=== PATIENT | male | born 1955 | race Caucasian/White ===

== ENCOUNTER 2018-03-29 16:05 | Emergency (ER) | payer OTHER ==
[~2018-03-29] VITALS: Ht 182.8 cm; Wt 97.5 kg
[2018-03-29] MEDS ORDERED: GABAPENTIN400 MG PO (16:11)
[2018-03-29] MEDS ORDERED: METOPROLOL SUCC25 M2 PO (16:12)
[2018-03-29] MEDS ORDERED: CEPHALEXIN500 M1 PO (17:42)
== END 2018-03-29 19:44 | disposition home or self-care (01) ==
LOC: ED 16:05
DX: S61.412A Laceration without foreign body of left hand, initial encounter (principal); Z79.899 Other long term (current) drug therapy; W31.89XA Contact with other specified machinery, initial encounter; Y93.89 Activity, other specified; Y92.89 Other specified places as the place of occurrence of the external cause; Y99.8 Other external cause status

== ENCOUNTER → 2020-02-01 | Outpatient (CLI) | payer OTHER ==
[~2020-02-01] MED LIST: CEPHALEXIN500 M1 PO; GABAPENTIN400 MG PO; METOPROLOL SUCC25 M2 PO
[2020-02-01 16:12] LABS: BASO % 0.4 % (0.0-1.0); EOS # 0.1 10*3/uL (0.0-0.4); EOS % 1.7 % (1.0-4.0); HEMATOCRIT 41.8 % (42.0-52.0); LYMPH % 14.3 % (27.0-41.0); MEAN CELL VOLUME 93.9 fl (80.0-94.0); MEAN CORPUSCULAR HGB 31.5 pg (27.0-31.0); MEAN CORPUSCULAR HGB CONC 33.5 g/dl (33.0-37.0); MEAN PLATELET VOLUME 11.2 fl (9.6-12.3); MONO # 0.6 10*3/uL (0.1-1.0); NEUT # 5.4 10*3/uL (2.3-7.9); NEUT % 75.3 % (47.0-73.0); PLATELET COUNT AUTOMATED 291 10*3/uL (130-400); RED BLOOD COUNT 4.45 10*6/uL (4.50-5.90); RED CELL DISTRI WIDTH 15.9 % (0-14.5); WHITE BLOOD COUNT 7.1 10*3/uL (4.8-10.8)
[2020-02-01 16:40] LABS: ALBUMIN 2.5 gm/dl (3.1-4.5); ALKALINE PHOSPHATASE 216 U/L (45-117); BUN 12 mg/dl (7-24); CHLORIDE 101 mmol/L (98-107); SGOT/AST 122 IU/L (3-35); SGPT/ALT 100 U/L (12-78); SODIUM 135 mmol/L (136-145); TOTAL PROTEIN 6.2 gm/dL (6.4-8.2)
[2020-02-01 16:41] LABS: INTERNATIONAL NORM RATIO 1.2 (2.0-3.5)
[2020-02-02 09:10] LABS: HEP B CORE AB TOTAL Negative (Negative); HEPATITIS B SURFACE AB Non Reactive (.); HEPATITIS Be ANTIGEN Negative (Negative)
[2020-02-02 15:10] LABS: AB TO HEPATITIS Be AG Negative (Negative)
== END | disposition home or self-care (01) ==
LOC: LAB 15:48
PROVIDERS: Internal Medicine Gastroenterology
DX: Z11.59 Encounter for screening for other viral diseases (principal); C22.0 Liver cell carcinoma; R18.8 Other ascites; K74.60 Unspecified cirrhosis of liver